=== PATIENT | male | born 1975 | race Caucasian/White ===

== ENCOUNTER 2023-12-26 13:26 | Outpatient (CLI) | payer BC, SELFPAY ==
--- NOTE | ~2023-12-26 | MR_ITS ---
MRI of the left knee Clinical history: Lateral meniscus tear Technique: Coronal proton density and proton density-weighted images, sagittal proton-density and T2 fat-sat images, and axial proton-density fat-saturated images were acquired. Findings: Anterior and posterior cruciate ligaments are intact. Medial collateral ligament and the la teral collateral ligament complex are intact. Popliteus tendon is intact. Medial and lateral menisci are intact, without evidence of tear. Articular cartilage is well preserved in the patellofemoral and lateral compartment. There is mild to moderate chondral thinning at the medial joint line. Bone marrow signals are unremarkable. Extensor mechanism is intact. Small joint effusion present. Small Benavides cyst present. 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 Small joint effusion and small Benavides's cyst. No meniscal tear seen. Reviewed, dictated and finalized at [facility]. 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 Small joint effusion and small Benavides's cyst. No meniscal tear seen.
== END 2023-12-26 13:27 ==
PROVIDERS: PCP Internal Medicine; Visit Provider Physician Assistant
DX: S83.282A Other tear of lateral meniscus, current injury, left knee, initial encounter (principal); M94.262 Chondromalacia, left knee; M25.462 Effusion, left knee; M71.22 Synovial cyst of popliteal space [Baker], left knee
CPT/HCPCS: 73721